=== PATIENT | male | born 1985 | race American Indian/Alaskan Native ===

== ENCOUNTER 2017-03-02 18:01 | Emergency (ER) | payer SELFPAY ==
[2017-03-02 18:59] LABS: Bilirubin,Urine NEG (Negative); Blood,Urine NEG (Negative); Ketones,Urine NEG (Negative); Leukocyte Esterase,Urine LG (Negative); Mucus,Urine FEW /HPF; Nitrite,Urine NEG (Negative); Protein,Urine <15 mg/dL mg/dL (Negative); Urobilinogen,Urine < 2.0 mg/dL (<2.0)
--- NOTE | 2017-03-02 23:24 | Emergency Department Report ---
ED Male HPI - General Chief complaint: Urogenital-Male Stated complaint: STD SYMPTOMS Time Seen by Provider: 03/02/17 23:24 Source: patient, RN notes reviewed Mode of arrival: Ambulatory Limitations: No Limitations - History of Present Illness Initial comments: This is a 32-year-old male, the patient is previously known to this provider, he recently moved here from [place], he reports a past medical history of HIV, he does not know his CD4 count, he reports that his viral load is undetectable, and he reports that he is on highly active antiretroviral therapy. Patient reports new intimate partner within the past few weeks, patient admits to active and passive intercourse with an denies barrier protection. He presents with A complaint of penile discharge, and dysuria. There is no testicular pain. No fevers or chills, no abdominal pain, no sore throat, no rash, no lethargy or irritability, no other complaints, patient's symptoms do not have exacerbating or relieving factors. MD Complaint: dysuria -: Gradual Location: penis Quality: burning Consistency: intermittent Improves with: none Worsens with: none denies other symptoms - Related Data Sexually active: Yes Home Medications Medication Instructions Recorded Confirmed Last Taken Triumeq Tablet 03/02/17 03/02/17 08:30 Allergies Allergy/AdvReac Type Severity Reaction Status Date / Time No Known Allergies Allergy Unverified 03/02/17 18:09 ED Review of Systems ROS: Stated complaint: STD SYMPTOMS Other details as noted in HPI Constitutional: denies: fever Eyes: denies: eye discharge ENT: denies: throat pain, epistaxis, congestion Respiratory: denies: cough Cardiovascular: denies: chest pain Gastrointestinal: denies: abdominal pain Genitourinary: dysuria, frequency. denies: testicular pain Musculoskeletal: denies: back pain Skin: denies: lesions Neurological: denies: weakness ED Past Medical Hx - Past Medical History Hx HIV: Yes - Surgical History Additional Surgical History: Hernia Repair 2011 - Medications Home Medications: Home Medications Medication Instructions Recorded Confirmed Last Taken Type Triumeq Tablet 03/02/17 03/02/17 08:30 History ED Physical Exam - General Limitations: No Limitations General appearance: alert, in no apparent distress - Head Head exam: Present: atraumatic, normocephalic - Eye Eye exam: Present: normal appearance, EOMI. Absent: nystagmus - ENT ENT exam: Present: normal exam, normal orophraynx, mucous membranes moist, TM's normal bilaterally, normal external ear exam - Neck Neck exam: Present: normal inspection, full ROM. Absent: tenderness, meningismus - Respiratory Respiratory exam: Present: normal lung sounds bilaterally. Absent: respiratory distress, wheezes, rales, rhonchi, stridor, chest wall tenderness - Cardiovascular Cardiovascular Exam: Present: regular rate, normal rhythm, normal heart sounds. Absent: bradycardia, tachycardia, irregular rhythm, systolic murmur, diastolic murmur, rubs, gallop - GI/Abdominal GI/Abdominal exam: Present: soft, normal bowel sounds. Absent: distended, tenderness, guarding, rebound, rigid, pulsatile mass - Rectal Rectal exam: Present: deferred - exam: Present: normal inspection. Absent: testicular tenderness External exam: Present: normal external exam, other (there is no testicular tenderness. There is normal testicular lie bilaterally. There is normal cremasteric reflex bilaterally.) - Extremities Exam Extremities exam: Present: normal inspection, full ROM, normal capillary refill. Absent: pedal edema, joint swelling, calf tenderness - Back Exam Back exam: Present: normal inspection, full ROM. Absent: tenderness, CVA tenderness (R), CVA tenderness (L), muscle spasm, paraspinal tenderness, vertebral tenderness - Neurological Exam Neurological exam: Present: alert, oriented X3, normal gait, other (Extraocular movements intact. Tongue midline. No facial droop. Facial sensation intact to light touch in the V1, V2, V3 distribution bilaterally. 5 and 5 strength in 4 extremities.. Sensation is intact to light touch in 4 extremities.). Absent : motor sensory deficit - Psychiatric Psychiatric exam: Present: normal affect, normal mood - Skin Skin exam: Present: warm, dry, intact, normal color. Absent: rash ED Course Vital Signs 03/02/17 18:05 Temperature 99.1 F Pulse Rate 84 Respiratory 18 Rate Blood Pressure 144/99 O2 Sat by Pulse 99 Oximetry ED Medical Decision Making - Lab Data Vital Signs 03/02/17 18:05 Temperature 99.1 F Pulse Rate 84 Respiratory 18 Rate Blood Pressure 144/99 O2 Sat by Pulse 99 Oximetry Lab Results 03/02/17 Range/Units 18:30 Urine Color Yellow (Yellow) Urine Turbidity Slightly-cloudy (Clear) Urine pH 6.0 (5.0-7.0) Ur Specific Henry 1.018 (1.003-1.030) Urine Protein <15 mg/dl (Negative) mg/dL Urine Glucose (UA) Neg (Negative) mg/dL Urine Ketones Neg (Negative) mg/dL Urine Blood Neg (Negative) Urine Nitrite Neg (Negative) Urine Bilirubin Neg (Negative) Urine Urobilinogen < 2.0 (<2.0) mg/dL Ur Leukocyte Esterase Lg (Negative) Urine WBC (Auto) 0.0 (0.0-6.0) /HPF Urine RBC (Auto) 7.0 (0.0-6.0) /HPF Urine Mucus Few /HPF - Medical Decision Making Differential diagnosis: Urethritis, nonspecific Assessment and plan: 32-year-old male with complaint of urethritis, urinalysis demonstrates large leukocyte esterase, patient will be treated empirically with ceftriaxone and azithromycin, he is counseled to engage in safe sex practices, and he is instructed to follow up with local health department or HIV specialist or primary care doctor. Physical exam otherwise unremarkable, he is suitable for discharge at this point in time, return precautions are reviewed. Critical care attestation.: If time is entered above; I have spent that time in minutes in the direct care of this critically ill patient, excluding procedure time. ED Disposition Clinical Impression: Urethritis Disposition: DC-01 TO HOME OR SELFCARE Is pt being admited?: No Does the pt Need Aspirin: No Condition: Stable Instructions: Nonspecific Urethritis in Men (ED) Additional Instructions: Cultures were sent today, and results will be available next 3-5 days. Please have your primary care doctor call the medical records department to obtain your culture results. I recommend outpatient testing for sexually transmitted diseases, including hepatitis, syphilis I also recommend that you abstain from sexual activity until you have completed her antibiotic therapy, a physician states that it is safe for you to resume sexual activity, and any partners that you have been sexually active with have been tested/treated/evaluated for sexual transmitted diseases. Follow-up with the primary care doctor or infectious disease specialist within the next 2 weeks. Make certain to wear barrier protection when engaging in sexual intimacy. I recommend that you return to the ER right away with worsening pain, migration of pain, intractable nausea/vomiting, inability tolerate liquid feeds. Referrals: PRIMARY CARE, [Primary Care Provider] - 3-5 Days RYAN NEWMAN MD [Staff Physician] - 3-5 Days HENRY ZHOU MD [Staff Physician] - 3-5 Days [facility] [Outside] - 3-5 Days Forms: STI Treatment and Prevention
[2017-03-02] MEDS ORDERED: ZITHROMAX PO ONE (23:29)
[2017-03-02] MEDS ORDERED: XYLOCAINE 1% MPF 5 mL INFILTRATI ONE (23:29)
[2017-03-02] MEDS ORDERED: ROCEPHIN IM ONE (23:29)
[2017-03-03 01:04] VITALS: BP 133/88
== END 2017-03-03 00:30 | disposition home or self-care (01) ==
LOC: ED 18:01
DX: N21.1 Calculus in urethra (principal); Z21 Asymptomatic human immunodeficiency virus [HIV] infection status
CPT/HCPCS: 81001; 87086; 96372; 99283; J0696

== ENCOUNTER 2018-08-12 03:24 | Emergency (ER) | payer SELFPAY ==
[2018-08-12 03:42] VITALS: BP 139/93
== END 2018-08-12 08:15 | disposition left against medical advice (07) ==
LOC: ED 03:24
DX: R07.89 Other chest pain (principal); R06.02 Shortness of breath; Z53.21 Procedure and treatment not carried out due to patient leaving prior to being seen by health care provider
CPT/HCPCS: 93005; 93010

== ENCOUNTER 2018-10-01 06:05 | Emergency (ER) | payer SELFPAY ==
[2018-10-01 06:16] VITALS: BP 131/93
[2018-10-01] MEDS ORDERED: TYLENOL PO ONE (06:29)
== END 2018-10-01 06:45 ==
LOC: ED 06:05
DX: R51 Headache (principal); Z53.21 Procedure and treatment not carried out due to patient leaving prior to being seen by health care provider

== ENCOUNTER 2019-02-14 07:40 | Emergency (ER) | payer OTHER ==
--- NOTE | 2019-02-14 08:13 | Emergency Department Report ---
ED General Adult HPI - General Chief complaint: Neck Pain/Injury Stated complaint: DIZZY/PRESSURE/RT SIDE NECK PAIN Time Seen by Provider: 02/14/19 07:59 Source: patient Mode of arrival: Ambulatory Limitations: No Limitations - History of Present Illness Initial comments: This is a 34-year-old -[place] male who presents to the emergency room with dizziness and a headache radiating to right neck for 2 days. He reports a past medical history of HIV and migraines. Patient reports symptoms worsened this morning when he got out of the shower he felt hot and easy. He reports a throbbing pain to right side of head radiating to right side of neck. He reports having headaches in the past but nothing like this one. Patient states he is a daily marijuana smoker. He last smoked marijuana 3 hours prior to arrival. He denies nausea, vomiting, chest pain, palpitations, shortness of breath, cough, fever, chills. Onset/Timin -: days(s) Location: head Radiation: neck Severity scale (0 -10): 8 Quality: stabbing Consistency: constant Improves with: none Worsens with: movement Associated Symptoms: denies other symptoms Treatments Prior to Arrival: none - Related Data Home Medications Medication Instructions Recorded Confirmed Last Taken Triumeq Tablet 03/02/17 03/02/17 08:30 Previous Rx's Medication Instructions Recorded Last Taken Type Ibuprofen [Motrin 600 MG tab] 600 mg PO Q8H PRN #20 tablet 02/14/19 Unknown Rx Meclizine [Antivert] 25 mg PO BID PRN #20 tablet 02/14/19 Unknown Rx Allergies Allergy/AdvReac Type Severity Reaction Status Date / Time No Known Allergies Allergy Unverified 03/02/17 18:09 ED Review of Systems ROS: Stated complaint: DIZZY/PRESSURE/RT SIDE NECK PAIN Other details as noted in HPI Constitutional: denies: chills, fever Respiratory: denies: cough, shortness of breath, wheezing Cardiovascular: denies: chest pain, palpitations Gastrointestinal: denies: abdominal pain, nausea, diarrhea Musculoskeletal: arthralgia (right sided neck pain). denies: back pain, joint swelling Skin: denies: rash, lesions Neurological: headache. denies: weakness, paresthesias Psychiatric: denies: anxiety, depression ED Past Medical Hx - Past Medical History Previous Medical History?: Yes Hx HIV: Yes - Surgical History Past Surgical History?: Yes Additional Surgical History: Hernia Repair 2011 - Social History Smoking Status: Current Every Day Smoker Substance Use Type: Alcohol, Marijuana - Medications Home Medications: Home Medications Medication Instructions Recorded Confirmed Last Taken Type Triumeq Tablet 03/02/17 03/02/17 08:30 History Ibuprofen [Motrin 600 MG tab] 600 mg PO Q8H PRN #20 tablet 02/14/19 Unknown Rx Meclizine [Antivert] 25 mg PO BID PRN #20 tablet 02/14/19 Unknown Rx ED Physical Exam - General Limitations: No Limitations General appearance: alert, in no apparent distress - Head Head exam: Present: atraumatic, normocephalic - Neck Neck exam: Present: normal inspection - Respiratory Respiratory exam: Present: normal lung sounds bilaterally. Absent: respiratory distress - Cardiovascular Cardiovascular Exam: Present: regular rate, normal rhythm. Absent: systolic murmur, diastolic murmur, rubs, gallop - GI/Abdominal GI/Abdominal exam: Present: soft, normal bowel sounds. Absent: distended, tenderness, guarding, rebound, rigid - Neurological Exam Neurological exam: Present: alert, oriented X3, normal gait - Psychiatric Psychiatric exam: Present: normal affect, normal mood - Skin Skin exam: Present: warm, dry, intact, normal color. Absent: rash ED Course Vital Signs 02/14/19 07:42 Temperature 98.4 F Pulse Rate 91 H Respiratory 18 Rate Blood Pressure 145/96 O2 Sat by Pulse 99 Oximetry ED Medical Decision Making - Lab Data Lab Results 02/14/19 Range/Units 08:34 POC Glucose 85 (70-105) - Radiology Data Radiology results: report reviewed CT head/brain wo con INDICATION / CLINICAL INFORMATION: headache and dizziness. TECHNIQUE: All CT scans at this location are performed using CT dose reduction for ALARA by means of automated exposure control. COMPARISON: None available. FINDINGS: Ventricle size is normal. No mass or mass effect is seen. There is no evidence of intracranial hemorrhage. No obvious area of infarction is identified. Mild mucosal thickening is seen in the right maxillary sinus. IMPRESSION: No acute findings. - Medical Decision Making Patient is stable and was examined by me. History of HIV and migraines. No signs of distress. Patient currently taking Triumeq for HIV daily. Accucheck obtained and normal. CT of head obtained and dictated by radiologist with no acute findings. Given toradol and meclizine once in ER. Patient reports feeling better. Normal head impulse test. Start meclizine and ibuprofen for headache and vertigo. Instructed to follow up with PCP at [place]. No further questions noted by the patient. Discharged home in stable condition. Critical care attestation.: If time is entered above; I have spent that time in minutes in the direct care of this critically ill patient, excluding procedure time. ED Disposition Clinical Impression: Vertigo, Dizziness Migraine Qualifiers: Migraine type: without aura Status migrainosus presence: with status migrainosus Intractability: not intractable Qualified Code(s): G43.001 - Migraine without aura, not intractable, with status migrainosus Disposition: TO HOME OR SELFCARE Is pt being admited?: No Does the pt Need Aspirin: No Condition: Stable Instructions: Acute Headache (ED), Migraine Headache (ED), Vertigo (ED) Additional Instructions: Take medication at start of headache. Moderate caffeine intake. Eat at scheduled times or 3 meals a day with snacks. Follow up with primary care provider in 24-72 hours. Prescriptions: Meclizine [Antivert] 25 mg PO BID PRN #20 tablet PRN Reason: Vertigo Ibuprofen [Motrin 600 MG tab] 600 mg PO Q8H PRN #20 tablet PRN Reason: Pain Referrals: [facility] [Provider Group] - 3-5 Days Forms: Work/School Release Form(ED), Accompanied Note Time of Disposition: 10:01
--- NOTE | 2019-02-14 09:14 | Cat Scan Report ---
CT head/brain wo con INDICATION / CLINICAL INFORMATION: headache and dizziness. TECHNIQUE: All CT scans at this location are performed using CT dose reduction for ALARA by means of automated e xposure control. COMPARISON: None available. FINDINGS: Ventricle size is normal. No mass or mass effect is seen. There is no evidence of intracranial hemorr andi. No obvious area of infarction is identified. Mild mucosal thickening is seen in the right maxil dorie sinus. IMPRESSION: No acute findings. Signer Name: Keanu Calderon MD FACSoniya Signed: 02/14/2019 9:09 AM Workstation Name: [id number]
[2019-02-14] MEDS ORDERED: ANTIVERT PO ONE (09:28)
[2019-02-14] MEDS ORDERED: TORADOL IM ONE (09:28)
[2019-02-14 10:13] VITALS: BP 124/85
== END 2019-02-14 10:13 | disposition home or self-care (01) ==
LOC: ED 07:40
DX: G43.909 Migraine, unspecified, not intractable, without status migrainosus (principal); R42 Dizziness and giddiness; Z21 Asymptomatic human immunodeficiency virus [HIV] infection status; F12.10 Cannabis abuse, uncomplicated; F17.200 Nicotine dependence, unspecified, uncomplicated; Z79.1 Long term (current) use of non-steroidal anti-inflammatories (NSAID); Z98.890 Other specified postprocedural states
CPT/HCPCS: 70450; 82962; 96372; 99284; J1885

== ENCOUNTER 2020-12-16 12:10 | Emergency (ER) | payer SELFPAY ==
[2020-12-16 12:35] VITALS: BP 138/89
[2020-12-16 13:43] LABS: Alanine Aminotransferase 14 units/L (7-56); Albumin 4.1 g/dL (3.9-5); Blood Urea Nitrogen 13 mg/dL (9-20); Calcium 9.3 mg/dL (8.4-10.2); Hemolysis Index 11
[2020-12-16 13:46] LABS: BUN/Creatinine Ratio 19
[2020-12-16 13:49] LABS: Hemoglobin 14.6 gm/dl (11.8-15.2); Mean Corpuscular HGB Conc 35 % (32-34); Mean Corpuscular Volume 96 fl (84-94); Platelet Count 208 K/mm3 (140-440); Red Blood Count 4.36 M/mm3 (3.65-5.03); Red Cell Distribution Width 12.9 % (13.2-15.2)
[2020-12-16] MEDS ORDERED: ONDANSETRON 4 MG ODT TAB PO ONE (14:25)
--- NOTE | 2020-12-16 14:36 | Emergency Department Report ---
ED N/V/D HPI - General Chief complaint: Nausea/Vomiting/Diarrhea Stated complaint: VOMITING DIARRHEA CRAMPS Time Seen by Provider: 12/16/20 13:23 Source: patient Mode of arrival: Ambulatory Limitations: No Limitations - History of Present Illness Initial comments: 35-year-old -Nigerian male with a history of HIV and is on Biktarvy presents to the emergency room for 4-day history of nausea vomiting and diarrhea. Patient states that the cramping has improved. Patient reports he has diarrhea when he does not eat and when he eats he has to vomit. Patient denies any fever no chills. Patient denies any cough no chest pain no shortness of breath no dysuria no penile discharge or hematuria. Patient states he is followed by Dorothy Alfaro next appointment is January 06, 2021. He is detectable. MD complaint: nausea, vomiting, diarrhea Onset/Timin -: days(s) Description of Vomiting: food contents Description of Diarrhea: water Associated Abdominal Pain: Yes (Cramping but has improved) Radiation: none Severity: mild Quality: cramping Consistency: now resolved Improves with: none Worsens with: eating Context: possible food poisoning Associated Symptoms: nausea/vomiting. denies: fever/chills - Related Data Home Medications Medication Instructions Recorded Confirmed Last Taken Triumeq Tablet 03/02/17 03/02/17 08:30 Previous Rx's Medication Instructions Recorded Last Taken Type Ibuprofen [Motrin 600 MG tab] 600 mg PO Q8H PRN #20 tablet 02/14/19 Unknown Rx Meclizine [Antivert] 25 mg PO BID PRN #20 tablet 02/14/19 Unknown Rx Ondansetron [Zofran Odt] 4 mg PO Q8HR #12 tab.rapdis 12/16/20 Unknown Rx Allergies Allergy/AdvReac Type Severity Reaction Status Date / Time No Known Allergies Allergy Verified 12/16/20 12:32 ED Review of Systems ROS: Stated complaint: VOMITING DIARRHEA CRAMPS Other details as noted in HPI Comment: All other systems reviewed and negative ED Past Medical Hx - Past Medical History Hx HIV: Yes - Surgical History Additional Surgical History: Hernia Repair 2011 - Social History Smoking Status: Current Every Day Smoker Substance Use Type: Alcohol, Marijuana - Medications Home Medications: Home Medications Medication Instructions Recorded Confirmed Last Taken Type Triumeq Tablet 03/02/17 03/02/17 08:30 History Ibuprofen [Motrin 600 MG tab] 600 mg PO Q8H PRN #20 tablet 02/14/19 Unknown Rx Meclizine [Antivert] 25 mg PO BID PRN #20 tablet 02/14/19 Unknown Rx Ondansetron [Zofran Odt] 4 mg PO Q8HR #12 tab.rapdis 12/16/20 Unknown Rx ED Physical Exam - General Limitations: No Limitations General appearance: alert - Head Head exam: Present: atraumatic, normocephalic - ENT ENT exam: Present: normal exam, normal external ear exam - Neck Neck exam: Present: normal inspection, full ROM - Respiratory Respiratory exam: Present: normal lung sounds bilaterally. Absent: accessory muscle use - Cardiovascular Cardiovascular Exam: Present: regular rate - GI/Abdominal GI/Abdominal exam: Present: soft, hyperactive bowel sounds. Absent: distended, tenderness ED Course Vital Signs 12/16/20 12:33 Temperature 98.4 F Pulse Rate 96 H Respiratory 18 Rate Blood Pressure 138/89 [Right] O2 Sat by Pulse 100 Oximetry ED Medical Decision Making - Lab Data Result diagrams: 12/16/20 13:06 12/16/20 13:06 Laboratory Tests 12/16/20 12/16/20 13:06 13:06 WBC 5.7 RBC 4.36 Hgb 14.6 Hct 42.0 MCV 96 H MCH 34 H MCHC 35 H RDW 12.9 L Plt Count 208 Lymph % (Auto) [employer]er Seg Neutrophils % [employer]er Sodium 139 Potassium 3.9 Chloride 103.3 Carbon Dioxide 29 Anion Gap 11 BUN 13 Creatinine 0.7 L Estimated GFR > 60 BUN/Creatinine Ratio 19 Glucose 98 Calcium 9.3 Total Bilirubin 0.30 AST 23 ALT 14 Alkaline Phosphatase 193 H Total Protein 7.5 Albumin 4.1 Albumin/Globulin Ratio 1.2 Lipase 54 - Medical Decision Making 35-year-old -[place]ian male with a history of HIV and is on Biktarvy presents to the emergency room for 4-day history of nausea vomiting and diarrhea. Patient states that the cramping has improved. Patient reports he has diarrhea when he does not eat and when he eats he has to vomit. Patient denies any fever no chills. Patient denies any cough no chest pain no shortness of breath no dysuria no penile discharge or hematuria. Patient states he is followed by Dorothy Alfaro next appointment is January 06, 2021. He is detectable. Zofran 4 mg p.o. and p.o. challenge initiated. Critical care attestation.: If time is entered above; I have spent that time in minutes in the direct care of this critically ill patient, excluding procedure time. ED Disposition Clinical Impression: Nausea vomiting and diarrhea Disposition: DC-01 TO HOME OR SELFCARE Is pt being admited?: No Does the pt Need Aspirin: No Condition: Stable Instructions: Diarrhea, Adult, [id number], Nausea and Vomiting, Adult, [id number] Additional Instructions: You can take the Zofran for the nausea. Increase your fluid intake advance your diet as tolerated. Be sure to take all your chronic medications as prescribed by your doctors. Recommend [id number] Imodium A-D for diarrhea follow instructions on the box. Keep your follow-up appointment with your ID doctor. Prescriptions: Ondansetron [Zofran Odt] 4 mg PO Q8HR #12 tab.rapdis Referrals: ENRIQUE TATUM MD [Staff Physician] - 3-5 Days Forms: Work/School Release Form(ED)
[2020-12-16 14:39] LABS: Bilirubin,Urine NEG (Negative); Blood,Urine SM (Negative); Color,Urine Yellow (Yellow); Mucus,Urine FEW /HPF
[2020-12-16 15:12] LABS: RBC Morphology Normal; Total Cells Counted 100
[2020-12-16 15:13] LABS: Platelet Estimate Consistent w Auto
== END 2020-12-16 15:52 | disposition home or self-care (01) ==
LOC: ED 12:10
DX: R11.2 Nausea with vomiting, unspecified (principal); R19.7 Diarrhea, unspecified; F17.200 Nicotine dependence, unspecified, uncomplicated; F12.90 Cannabis use, unspecified, uncomplicated; Z79.899 Other long term (current) drug therapy; Z21 Asymptomatic human immunodeficiency virus [HIV] infection status; Z98.890 Other specified postprocedural states
CPT/HCPCS: 36415; 80053; 81001; 83690; 85007; 85025; Q0162